=== PATIENT | female | born 1990 | race Caucasian/White ===

== ENCOUNTER 2020-12-12 19:52 | Emergency (ER) | payer OTHER, SELFPAY ==
--- NOTE | ~2020-12-12 | XR_ITS ---
EXAMINATION: XR chest 1V portable EXAM DATE: 12/12/2020 20:53 INDICATION: Cough and congestion. Chest pain for 3 days sternal region. History of asthma. TECHNIQUE: Portable AP frontal chest x-ray was obtained. There is no prior study for comparison. FINDINGS: The lungs are clear. There are no pleural effusions. The cardiomediastinal silhouette is within normal limits. There is no pneumothorax suspected. The bones and soft tissues are unremarkab le. IMPRESSION: No acute cardiopulmonary findings. Reviewed, dictated and finalized at location A.
[2020-12-12 19:55] VITALS: BP 127/65; PULSE 110; RESP 21; TEMP 36.6; O2SAT 99
--- NOTE | 2020-12-12 21:23 | ED.GENADULT ---
HPI - General Adult General Chief complaint: Shortness of Breath/Dyspnea Stated complaint: sob Time Seen by Provider: 12/12/20 20:01 Source: patient and RN notes reviewed Mode of arrival: ambulatory Limitations: no limitations History of Present Illness HPI narrative: Patient is a 30-year-old female who presents with congestion fever chills body ache cough that all developed over the course of the last 2 to 3 days denies sick contacts patient notes she has an inhaler at home for which she has been using she also notes that she has history of tobacco abuse patient denies vomiting or diarrhea patient on arrival does not appear distressed Related Data Home Medications Medication Instructions Recorded Confirmed Ventolin HFA 12/12/20 Allergies Allergy/AdvReac Type Severity Reaction Status Date / Time sulfamethoxazole Allergy Seizure Verified 12/12/20 19:57 [From ] trimethoprim [From ] Allergy Seizure Verified 12/12/20 19:57 Review of Systems Review of Systems: All systems reviewed & are unremarkable except as noted in HPI and below PMFSH Past Medical History Medical History (Updated 12/12/20 @ 21:27 by Taran Shin PA-C) Asthma Social History Social History (Updated 12/12/20 @ 21:25 by Taran Shin PA-C) Smoking status: Current every day smoker Gender identity (if verbalized by the patient): Female Exam Narrative: Exam Narrative: GENERAL: Well-appearing, well-nourished, and in no acute distress. HEAD: Normocephalic, atraumatic. EYES: PERRLA and EOMI. ENT: Nares clear, no rhinorrhea or epistaxis. Mucous membranes moist. NECK: Supple. No adenopathy or masses. CHEST: Clear to auscultation. No respiratory distress. No wheezes rales or rhonchi HEART: Regular rate and rhythm. No murmur heard. Normal peripheral pulses. ABDOMEN: Soft, nontender, nondistended EXTREMITIES: Normal range of motion. No edema. SKIN: Warm, dry, no rash. NEURO: No focal deficits. Alert and oriented x3. Cranial nerves II through XII grossly intact PSYCH: Normal mood and affect. Course Course Emergency Course: Patient found to have influenza A nontoxic-appearing no hypoxemia no pneumonia will be treated outpatient provided with reasons to return agreement with treatment plan Vital Signs Vital signs: Vital Signs Temperature 97.9 F 12/12/20 19:55 Pulse Rate 110 H 12/12/20 19:55 Respiratory Rate 21 H 12/12/20 19:55 Blood Pressure 127/65 12/12/20 19:55 Pulse Oximetry 99 12/12/20 19:55 Temperature 97.9 F 12/12/20 19:55 Pulse Rate 110 H 12/12/20 19:55 Respiratory Rate 21 H 12/12/20 19:55 Blood Pressure 127/65 12/12/20 19:55 Pulse Oximetry 99 12/12/20 19:55 Medical Decision Making MDM Narrative Medical decision making narrative: Patient on arrival to emergency department with upper respiratory symptoms found to have influenza A agreeing to outpatient follow-up with primary care given reasons to return hemodynamically stable ABCs and vital signs intact Vital Signs Vital Signs: Vital Signs Temperature 97.9 F 12/12/20 19:55 Pulse Rate 110 H 12/12/20 19:55 Respiratory Rate 21 H 12/12/20 19:55 Blood Pressure 127/65 12/12/20 19:55 Pulse Oximetry 99 12/12/20 19:55 Temperature 97.9 F 12/12/20 19:55 Pulse Rate 110 H 12/12/20 19:55 Respiratory Rate 21 H 12/12/20 19:55 Blood Pressure 127/65 12/12/20 19:55 Pulse Oximetry 99 12/12/20 19:55 Lab Data Labs: Lab Results 12/12/20 Range/Units 20:43 SARS-CoV-2 RNA (RT-PCR) Pending Influenza A Screen Positive Reference Range: Negative Influenza B Screen Negative Reference Range: Negative Imaging Data Radiologist's impression: ITS Impressions Chest X-Ray 12/12/20 20:59 IMPRESSION: No acute cardiopulmonary findings. Discharge Angelina
[2020-12-12 21:55] VITALS: BP 148/89; PULSE 92; RESP 20; TEMP 37.2; O2SAT 98
[2020-12-13 18:05] LABS: SARS-CoV-2 RNA PCR Negative
== END 2020-12-12 21:56 | disposition home or self-care (01) ==
PROVIDERS: Emergency Medicine Emergency Medical Services; Emergency Provider Emergency Medicine
DX: J10.1 Influenza due to other identified influenza virus with other respiratory manifestations (principal); J45.909 Unspecified asthma, uncomplicated; F17.200 Nicotine dependence, unspecified, uncomplicated; Z20.828 Contact with and (suspected) exposure to other viral communicable diseases
CPT/HCPCS: 71045; 87804; 99283; C9803; U0003; U0005

== ENCOUNTER 2022-05-04 19:07 | Emergency (ER) | payer OTHER, SELFPAY ==
[2022-05-04] VITALS (15 sets, daily range): BP systolic 104–128; BP diastolic 66–82; PULSE 69–93; RESP 15–28; TEMP 36.8; O2SAT 93–100
--- NOTE | ~2022-05-04 | XR_ITS ---
EXAMINATION: XR chest 1V portable Exam Date/Time: 05/04/2022 19:25 SENIOR CLINICAL PROJECT MANAGER HISTORY: ARAVIND Comparison: 12/12/2020. RESULT: Lines, tubes, and devices: None. Lungs and pleura: Clear. Cardiomediastinal silhouette: Stable. Other: No acute osseous or upper abdominal finding. IMPRESSION: No acute cardiopulmonary process. Reviewed, dictated and finalized at location K. OR CLINICAL PROJECT MANAGER
--- NOTE | 2022-05-04 19:17 | ED.SOB ---
HPI - SOB/Dyspnea General Chief Complaint: Shortness of Breath/Dyspnea Stated Complaint: ANXIETY/ASTHMA Time Seen by Provider: 05/04/22 19:11 History of Present Illness HPI Narrative: Patient with history of anxiety with panic attacks and asthma states that she was at a storage facility moving, and the combination of the cold air and dust made her feel like she was having trouble breathing, she could not find her inhaler and started getting more more anxious and felt like she was having full-blown panic attack. Since she is got here to the ER, she has been feeling better, with some shortness of breath and chest tightness. She has been off of her depression medications for a while now, her primary care doctor did start her on antidepressants about 2 weeks ago however after a week she was unable to tolerate the side effects and is now waiting to see her doctor again. Related Data Home Medications Medication Instructions Recorded Confirmed Ventolin HFA 12/12/20 Allergies Allergy/AdvReac Type Severity Reaction Status Date / Time sulfamethoxazole Allergy Seizure Verified 05/04/22 19:19 [From ] trimethoprim [From ] Allergy Seizure Verified 05/04/22 19:19 Review of Systems Review of Systems: CONST: No fever. HEENT: No sore throat C/V: Chest tightness RESP: Shortness of breath GI: No abdominal pain : No dysuria. M/S: No joint pain. SKIN: No rash. NEURO: [No headache or focal numbness or weakness] PSYCH: Anxiety but denies any thoughts of hurting herself or others PMFSH Past Medical History Medical History Asthma Social History Social History Smoking status: Current every day smoker Gender identity (if verbalized by the patient): Female Exam Narrative: EXAMINATION OF ORGAN SYSTEMS/BODY AREAS: Constitutional: Vital signs per nursing GENERAL:[No acute distress, non-toxic appearing.] HEAD: Normal with no signs of head trauma. EYES: EOMI, conjunctiva normal ENT: Hearing grossly intact LUNGS: . Clear to auscultation bilaterally HEART: [Regular rate and rhythm] ABD: [Soft], nondistended EXT: Normal range of motion SKIN: [No rashes or lesions.] NEURO: [Alert and oriented x 3. No gross focal sensory or strength deficits.] PSYCH: Mildly anxious affect Course Vital Signs Vital signs: Vital Signs Temperature 98.2 F 05/04/22 19:14 Pulse Rate 90 05/04/22 19:14 Respiratory Rate 23 H 05/04/22 19:14 Blood Pressure 128/75 05/04/22 19:14 Pulse Oximetry 100 05/04/22 19:14 Temperature 98.2 F 05/04/22 19:14 Pulse Rate 75 05/04/22 20:32 Respiratory Rate 24 H 05/04/22 20:32 Blood Pressure 110/66 05/04/22 20:32 Pulse Oximetry 100 05/04/22 20:32 Oxygen Delivery Room Air 05/04/22 19:43 MDM - SOB/Dyspnea MDM Narrative Medical decision making narrative: ED COURSE AND MEDICAL DECISION MAKIN-year-old female with acute dyspnea and anxiety, which feels like her usual panic attack. Patient is hemodynamically stable. Lungs are clear and she is occasionally tearful. Albuterol and ativan ordered here. Patient monitored in the ED for a couple of hours and on reevaluation is feeling significantly better. No respiratory distress or accessory muscle use. Good air movement bilateral lungs. EKG - 12-Lead: Performed at 2048. Interpreted by me. [Sinus rhythm]. Rate 71. [Normal] axis. VT-interval 167. QRS duration 91. QTc 404. [No ST segment elevation or depression]. [T-wave normal]. Impression: No EKG evidence of acute ischemia or dysrhythmia. Chest x-ray negative for acute abnormality. She is PERC negative. She denies any thoughts of self-harm and she has follow-up with her primary care doctor. Albuterol w/ MDI provided. She is given strict return precautions and patient is discharged in stable/improved condition. Pulse oximetry interpretation: Not hypoxic. D
[2022-05-04] MEDS: ALBUTEROL SULFATE (*SP) AEROSOL 1 PUFF 2 PUFF INHALATION (19:42)
[2022-05-04] MEDS: LORazepam (*CRX) 0.5 MG TABLET PO (20:02)
--- NOTE | 2022-05-04 20:20 | ECG_ITS ---
Measurements Intervals [place] Rate: 71 P: 23 TX: 167 QRS: 37 QRSD: 91 T: 23 QT: 382 QTc: 416 Interpretive Statements SINUS RHYTHM NORMAL ECG NO PREVIOUS ECG AVAILABLE FOR COMPARISON Electronically Signed On 05-05-2022 6:41:08 CHANNEL BUSINESS MANAGER by Reji Moreno D.O.
== END 2022-05-04 21:11 | disposition home or self-care (01) ==
PROVIDERS: Emergency Provider Emergency Medicine
DX: F41.9 Anxiety disorder, unspecified (principal); R07.89 Other chest pain; F17.200 Nicotine dependence, unspecified, uncomplicated
CPT/HCPCS: 71045; 93005; 94640; 99283; A9270

== ENCOUNTER 2022-09-05 14:03 | Emergency (ER) | payer OTHER, SELFPAY ==
--- NOTE | ~2022-09-05 | XR_ITS ---
EXAMINATION: XR abdomen/kub 1V INDICATION: Right flank pain, microscopic hematuria TECHNIQUE: Supine view of the abdomen is obtained. COMPARISON: None FINDINGS: Punctate pelvic calcifications likely reflect phleboliths. A 2 mm calcification of the righ t pelvis could reflect phleboliths versus distal ureteral stone. The bowel gas pattern is normal. The re is a moderate volume of colonic stool. IMPRESSION: 1. 2 mm right pelvic calcification consistent with phlebolith versus distal ureteral stone. Reviewed, dictated and finalized at location B. IMPRESSION: 1. 2 mm right pelvic calcification consistent with phlebolith versus distal ure teral stone.
--- NOTE | 2022-09-05 14:12 | PC.NURSE ---
in br to obtain ua spec.
[2022-09-05 14:18] VITALS: BP 155/102; PULSE 102; RESP 16; TEMP 36.7; O2SAT 98
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
== END 2022-09-05 15:10 | disposition home or self-care (01) ==
PROVIDERS: Emergency Provider Nurse Practitioner Family
DX: N20.0 Calculus of kidney (principal); J45.909 Unspecified asthma, uncomplicated; F17.200 Nicotine dependence, unspecified, uncomplicated
CPT/HCPCS: 74018; 81003; 81025; 87077; 87086; 87186; 99213; G0463